=== PATIENT | female | born 1990 | race Caucasian/White ===

== ENCOUNTER 2019-01-24 23:23 | Emergency (ER) | payer MEDICAID ==
[~2019-01-24] VITALS: Ht 157 cm; Wt 143.1 kg
[2019-01-25] MEDS ORDERED: SITA100T12 PO (00:33)
[2019-01-25] MEDS ORDERED: LISI10TA2 PO (00:33)
[2019-01-25] MEDS ORDERED: METF500T8 PO (00:33)
[2019-01-25] MEDS ORDERED: BUPR150T7 PO (00:33)
[2019-01-25] MEDS ORDERED: ATOR20TA66 PO (00:33)
--- NOTE | 2019-01-25 00:39 | ED GU-Female ---
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 Patient states tonight while she and her were having sex some tissue came out of her vagina. Patient states she currently is on her period. She has been seen by her PCP for the abdominal pain and has had labs and a CT scan. She states the CT scan and labs were negative. Nursing Sepsis Screen: No Definite Risk Source: patient History of Present Illness Date Seen by Provider: Jan 24, 2019 Time Seen by Provider: 23:45 Initial Comments PT ARRIVES VIA POV WITH MALE S.O. AND HER MOTHER C/O DIFFUSE LOWER ABDOMINAL PAIN FOR OVER A MONTH STATES NOTHING WORSENS OR IMPROVES PAIN STATES SHE SAW DR. RING IN [place] 3 WEEKS AGO, AND HAD A CT SCAN DONE. PT STATES THAT IT WAS NORMAL. 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 HAS ONLY USED 4 PADS TODAY HAD INTERCOURSE TONIGHT AND AFTERWARDS, "A BIG PIECE OF TISSUE CAME OUT" SO CAME HERE "TO SEE WHAT IT WAS" --BRINGS WITH HER AN IRREGULAR/DISORGANIZED PIECE OF BLOODY TISSUE APPROXIMATELY 2 X 6 CM STATES LOWER ABDOMINAL PAIN GOT WORSE AFTER THAT, BUT IS BETTER NOW. HAS NOT TAKEN ANYTHING FOR PAIN NO FEVER NO URINARY SYMPTOMS ONLY HAD SMALL AMOUNT OF CLEAR TO WHITE MUCOUS DISCHARGE PRIOR TO STARTING HER PERIOD NO NAUSEA/VOMITING/DIARRHEA. HAD SOME MILD CONSTIPATION, AND HAD A NORMAL BM TODAY. PT IS AB 1--NO D&C REQUIRED WITH MISCARRIAGE--WAS HER FIRST . SECOND WAS FULL TERM / IN 2010 LMP WAS THE END OF NOVEMBER. NO PERIOD IN . NOT ON CONTROL PCP: DR. RING, [place], [place] Allergies and Home Medications Allergies Coded Allergies: No Known Drug Allergies (Unverified , 01/25/19) Home Medications Atorvastatin Calcium 20 Mg Tablet, 20 MG PO DAILY, (Reported) Bupropion HCl 150 Mg Tab.er.24h, 150 MG PO DAILY, (Reported) Lisinopril 10 Mg Tablet, 10 MG PO DAILY, (Reported) Metformin HCl 500 Mg Tab.er.24h, 500 MG PO DAILY, (Reported) Nitrofurantoin Monohyd/M-Cryst 100 Mg Capsule, 100 MG PO BID Prescribed by: ALEXA JULIEN on 01/25/19 0142 Sitagliptin Phosphate 100 Mg Tablet, 100 MG PO DAILY, (Reported) Review of Systems Review of Systems Constitutional: no symptoms reported Respiratory: no symptoms reported Cardiovascular: no symptoms reported Gastrointestinal: see HPI Genitourinary: see HPI : No LMP: Jan 19, 2019 Musculoskeletal: no symptoms reported Skin: no symptoms reported Psychiatric/Neurological: No Symptoms Reported Endocrine: No Symptoms Reported Hematologic/Lymphatic: No Symptoms Reported Past Xheprvq-Gttdnl-Xudldt Hx Patient Social History Alcohol Use: Denies Use Recreational Drug Use: No Smoking Status: Current Everyday Smoker (1 PPD) Type Used: Cigarettes (1 PPD) 2nd Hand Smoke Exposure: Yes Recent Foreign Travel: No Contact w/Someone Who Travel: No Recent Infectious Disease Expo: No Recent Hopitalizations: No Physical Abuse: No Sexual Abuse: No Mistreated: No Fear: No Immunizations Up To Date PED Vaccines UTD: Yes Seasonal Allergies Seasonal Allergies: No Past Medical History Surgeries: Yes Section, Tonsillectomy Respiratory: No Cardiac: Yes High Cholesterol, Hypertension Neurological: No : No Last Menstrual Period: Jan 19, 2019 Hx : 2 Hx Para: 1 Hx Total # of Abortions (Sp): 1 Reproductive Disorders: No Genitourinary: No Gastrointestinal: No Musculoskeletal: No Endocrine: Yes (MORBID OBESITY) Diabetes, Non-Insulin dep HEENT: No Cancer: No Psychosocial: No Integumentary: No Blood Disorders: No Physical Exam Vital Signs Vital Signs - First Documented 01/24/19 23:37 Temp 36.7 Pulse 116 Resp 20 B/P (MAP) 143/97 (112) Pulse Ox 96 O2 Delivery Room Air Capillary Refill : Less Than 3 Seconds Height, Weight, BMI Height: '" Weight: lbs. oz. kg; 58.00 BMI Method: General Appearance: no apparent distress, obese Cardiovascular: regular rate, rhythm, no murmur Respiratory: normal breath sounds, no respiratory distress, no accessory muscle use Gastrointestinal: normal bowel sounds, soft, no organomegaly, no pulsatile mas s, tenderness (MILD SUPRAPUBIC TENDERNESS) Pelvic: No tender w/ cervical motion; vaginal bleeding ([place]), other (CERVIX CLOSED, NO TISSUE IN VAGINAL CANAL. FEW LESIONS THAT HAVE APPEARANCE OF NABOTHIAN CYSTS ON CERVIX. NO CMT. 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, no motor/sensory deficits, alert, normal mood/affect, oriented x 3 Skin: normal color, warm/dry Progress/Results/Core Measures Suspected Sepsis Recent Fever Within 48 Hours: No Infection Criteria Present: None New/Unexplained Altered Menta: No Sepsis Screen: No Definite Risk SIRS Temperature: Pulse: 116 Respiratory Rate: 20 Laboratory Tests 01/25/19 00:43: White Blood Count 15.4H Blood Pressure 143 /97 Mean: 112 Laboratory Tests 01/25/19 00:43: Creatinine 0.71, Platelet Count 300, Total Bilirubin 0.4 Results/Orders Lab Results Laboratory Tests Test 01/25/19 00:43 01/25/19 00:45 Range/Units White Blood Count 15.4 H 4.3-11.0 10^3/uL Red Blood Count 5.74 4.35-5.85 10^6/uL Hemoglobin 15.5 11.5-16.0 G/DL Hematocrit 47 35-52 % Mean Corpuscular Volume 82 80-99 FL Mean Corpuscular Hemoglobin 27 25-34 PG Mean Corpuscular Hemoglobin Concent 33 32-36 G/DL Red Cell Distribution Width 15.0 H 10.0-14.5 % Platelet Count 300 130-400 10^3/uL Mean Platelet Volume 10.1 7.4-10.4 FL Neutrophils (%) (Auto) 66 42-75 % Lymphocytes (%) (Auto) 24 12-44 % Monocytes (%) (Auto) 6 0-12 % Eosinophils (%) (Auto) 4 0-10 % Basophils (%) (Auto) 0 0-10 % Neutrophils # (Auto) 10.2 H 1.8-7.8 X 10^3 Lymphocytes # (Auto) 3.7 1.0-4.0 X 10^3 Monocytes # (Auto) 0.9 0.0-1.0 X 10^3 Eosinophils # (Auto) 0.6 H 0.0-0.3 10^3/uL Basophils # (Auto) 0.0 0.0-0.1 10^3/uL Sodium Level 138 135-145 MMOL/L Potassium Level 3.9 3.6-5.0 MMOL/L Chloride Level 102 98-107 MMOL/L Carbon Dioxide Level 24 21-32 MMOL/L Anion Gap 12 5-14 MMOL/L Blood Urea Nitrogen 11 7-18 MG/DL Creatinine 0.71 0.60-1.30 MG/DL Estimat Glomerular Filtration Rate > 60 BUN/Creatinine Ratio 15 Glucose Level 159 H 70-105 MG/DL Calcium Level 9.7 8.5-10.1 MG/DL Corrected Calcium 9.4 8.5-10.1 MG/DL Total Bilirubin 0.4 0.1-1.0 MG/DL Aspartate Amino Transf (AST/SGOT) 29 5-34 U/L Alanine Aminotransferase (ALT/SGPT) 50 0-55 U/L Alkaline Phosphatase 105 40-136 U/L Total Protein 7.8 6.4-8.2 GM/DL Albumin 4.4 3.2-4.5 GM/DL Human Chorionic Gonadotropin, Quant 32 H <5 MIU/ML Urine Color YELLOW Urine Clarity CLEAR Urine pH 5 5-9 Urine Specific [place] 1.030 H 1.016-1.022 Urine Protein 2+ H NEGATIVE Urine Glucose (UA) 3+ H NEGATIVE Urine Ketones 1+ H NEGATIVE Urine Nitrite NEGATIVE NEGATIVE Urine Bilirubin 1+ H NEGATIVE Urine Urobilinogen 1 NORMAL MG/DL Urine Leukocyte Esterase 1+ H NEGATIVE Urine RBC (Auto) 1+ H NEGATIVE Urine RBC NONE /HPF Urine WBC 2-5 /HPF Urine Squamous Epithelial Cells 2-5 /HPF Urine Crystals NONE /LPF Urine Bacteria MODERATE H /HPF Urine Casts PRESENT /LPF Urine Hyaline Casts 0-2 H /LPF Urine Mucus LARGE H /LPF Urine Culture Indicated NO My Orders Orders - ALEXA JULIEN DO Cbc With Automated Diff (01/25/19 00:30) Comprehensive Metabolic Panel (01/25/19 00:30) Hcg,Quantitative (01/25/19 00:30) Ua Culture If Indicated (01/25/19 00:30) Abo Rh Type (01/25/19 00:30) Manual Differential (01/25/19 00:43) Nitrofurantoin Capsule,Macro (Macrobid C (01/25/19 01:45) Vital Signs/I&O 01/24/19 23:37 Temp 36.7 Pulse 116 Resp 20 B/P (MAP) 143/97 (112) Pulse Ox 96 O2 Delivery Room Air Capillary Refill : Less Than 3 Seconds Blood Pressure Mean: 112 Progress Note : Progress Note NO COMPLAINTS OF PAIN, OR ANY ACTIVE BLEEDING DURING ENTIRE ER STAY. DID NOT USE ANY PADS DURING ER STAY NO ULTRASOUND AVAILABLE HERE ALL WEEKEND. ADVISED PT TO FOLLOW UP WITH HER PCP ON SATURDAY FOR FURTHER EVALUATION Departure Impression Primary Impression: Urinary tract infection Additional Impression: SUSPECTED MISCARRIAGE Disposition: HOME, SELF-CARE (ERASED) Condition: Stable Departure-Patient Inst. Patient Instructions: Threatened Miscarriage (DC), Urinary Tract Infection, Adult (DC) Add. Discharge Instructions: NOTHING IN VAGINA--NO TAMPONS, DOUCHING OR INTERCOURSE LOTS OF CLEAR LIQUIDS TYLENOL NEEDED FOR PAIN KEEP AN ACCURATE PAD COUNT, RETURN IF SOAKING MORE THAN 1 MAXI PAD AN HOUR FOLLOW UP WITH YOUR DR ON SATURDAY FOR FURTHER CARE All discharge instructions reviewed with patient and/or family. Voiced understanding. Scripts Nitrofurantoin Monohyd/M-Cryst (Macrobid 100 mg Capsule) 100 Mg Capsule 100 MG PO BID, #20 CAP Prov: ALEXA JULIEN DO 01/25/19 ALEXA JULIEN DO Jan 25, 2019 00:39
--- NOTE | 2019-01-25 00:43 | NUR ---
Collected vaginal tissue brought from home and sent to lab with surgical pathology slip
[2019-01-25 00:50] LABS: BASOPHILS % (AUTO) 0 % (0-10); EOSINOPHILS # (AUTO) 0.6 10^3/uL (0.0-0.3); EOSINOPHILS % (AUTO) 4 % (0-10); HEMATOCRIT 47 % (35-52); HEMOGLOBIN 15.5 G/DL (11.5-16.0); LYMPHOCYTES # (AUTO) 3.7 X 10^3 (1.0-4.0); LYMPHOCYTES % (AUTO) 24 % (12-44); MEAN CORPUSCULAR HEMOGLOBIN 27 PG (25-34); MEAN CORPUSCULAR HGB CONC 33 G/DL (32-36); MEAN CORPUSCULAR VOLUME 82 FL (80-99); MEAN PLATELET VOLUME 10.1 FL (7.4-10.4); MONOCYTES # (AUTO) 0.9 X 10^3 (0.0-1.0); MONOCYTES % (AUTO) 6 % (0-12); NEUTROPHILS # (AUTO) 10.2 X 10^3 (1.8-7.8); NEUTROPHILS % (AUTO) 66 % (42-75); PLATELET COUNT 300 10^3/uL (130-400); WHITE BLOOD COUNT 15.4 10^3/uL (4.3-11.0)
[2019-01-25 00:51] LABS: BILIRUBIN,URINE 1+ (NEGATIVE); CLARITY,URINE CLEAR; COLOR,URINE YELLOW; GLUCOSE, URINE (UA) 3+ (NEGATIVE); KETONES,URINE 1+ (NEGATIVE); LEUKOCYTE ESTERASE ,URINE 1+ (NEGATIVE); NITRITE,URINE NEGATIVE (NEGATIVE); PH,URINE 5 (5-9); PROTEIN,URINE 2+ (NEGATIVE); UROBILINOGEN,URINE 1 MG/DL (NORMAL)
[2019-01-25 01:22] LABS: ALANINE AMINOTRANSFERASE 50 U/L (0-55); ALBUMIN 4.4 GM/DL (3.2-4.5); ALKALINE PHOSPHATASE 105 U/L (40-136); BILIRUBIN,TOTAL 0.4 MG/DL (0.1-1.0); BUN/CREATININE RATIO 15; CALCIUM 9.7 MG/DL (8.5-10.1); CARBON DIOXIDE 24 MMOL/L (21-32); CHLORIDE 102 MMOL/L (98-107); CREATININE SERUM 0.71 MG/DL (0.60-1.30); GFR ESTIMATED > 60; GLUCOSE 159 MG/DL (70-105); POTASSIUM 3.9 MMOL/L (3.6-5.0); SODIUM 138 MMOL/L (135-145); TOTAL PROTEIN 7.8 GM/DL (6.4-8.2)
[2019-01-25 01:23] LABS: BACTERIA,URINE MODERATE /HPF; HYALINE CASTS, URINE 0-2 /LPF
[2019-01-25] MEDS ORDERED: NITR-65 PO (01:42)
[2019-01-25] MEDS ORDERED: NITROFURANTOIN 100 MG (MACROBID) CAPSULE PO ONE (01:45)
[2019-01-25 01:50] VITALS: BP 109/73
[2019-01-25 05:28] LABS: EOSINOPHILS % (MANUAL) 5 %; LYMPHOCYTES % (MANUAL) 28 %; MONOCYTES % (MANUAL) 4 %; NEUTROPHILS % (MANUAL) 63 %
== END 2019-01-25 02:00 | disposition home or self-care (01) ==
LOC: ER 23:25 → EDBD 23:25 → ER 01-25 02:00
DX: N39.0 Urinary tract infection, site not specified (principal); I10 Essential (primary) hypertension; E78.00 Pure hypercholesterolemia, unspecified; E11.9 Type 2 diabetes mellitus without complications; E66.01 Morbid (severe) obesity due to excess calories; F17.210 Nicotine dependence, cigarettes, uncomplicated; Z68.43 Body mass index [BMI] 50.0-59.9, adult; Z79.84 Long term (current) use of oral hypoglycemic drugs; Z90.89 Acquired absence of other organs
CPT/HCPCS: 36415; 80053; 81000; 84702; 85007; 85027; 86900; 86901

== ENCOUNTER → 2019-03-10 | Outpatient (CLI) | payer MEDICAID ==
[~2019-03-10] MED LIST: ATOR20TA66 PO; BUPR150T7 PO; LISI10TA2 PO; METF500T8 PO; NITR-65 PO; SITA100T12 PO
--- NOTE | 2019-03-10 13:50 | Diagnostic Imaging Report ---
PROCEDURE: US Non-ob pelvis comp/trans. TECHNIQUE: Multiple realtime grayscale images were obtained of the pelvis in various projections endovaginally. Transabdominal imaging was also performed. INDICATION: Abnormal uterine bleeding. FINDINGS: The previous pelvic ultrasound exam performed on 12/21/2011 noted an IUD within the endometrium. In the interval since the prior study the IUD has been removed. The uterus itself is nongravid and not enlarged measuring 8.7 x 6.4 x 5.3 cm. The endometrial lining is slightly thickened measuring 9 mm (normal 5 mm or less). This finding is nonspecific. Correlation with the patient's menstrual cycle would be recommended. The right ovary was identified and was generally unremarkable. As on the prior exam, the left ovary could not be visualized. There is no pelvic mass or free fluid collection noted. IMPRESSION: 1. There is no evidence for an acute pelvic abnormality although the left ovary is not visualized. 2. The IUD within the uterus seen previously has been removed. Dictated by: Dictated on workstation # [id number]
== END ==
LOC: RAD 10:19
PROVIDERS: ATTEND Obstetrics & Gynecology
DX: N93.8 Other specified abnormal uterine and vaginal bleeding (principal); Z68.43 Body mass index [BMI] 50.0-59.9, adult; Z97.5 Presence of (intrauterine) contraceptive device
CPT/HCPCS: 76830; 76856

== ENCOUNTER 2019-05-04 23:56 | Emergency (ER) | payer SELFPAY ==
[~2019-05-04] VITALS: Ht 157.4 cm; Wt 138.3 kg
[~2019-05-04 23:56] MED LIST changes: +METF500T19 PO; -METF500T8 PO
[2019-05-05] MEDS ORDERED: ASPIRIN 81 MG CHEW (CHILDREN'S ASA) ONE (00:10)
[2019-05-05] MEDS ORDERED: NS IV 1000 ML 1,000 ML IV ONE (00:19)
[2019-05-05 00:25] LABS: BASOPHILS % (AUTO) 0 % (0-10); EOSINOPHILS # (AUTO) 0.4 10^3/uL (0.0-0.3); EOSINOPHILS % (AUTO) 3 % (0-10); HEMATOCRIT 49 % (35-52); HEMOGLOBIN 15.9 G/DL (11.5-16.0); LYMPHOCYTES # (AUTO) 3.8 X 10^3 (1.0-4.0); LYMPHOCYTES % (AUTO) 30 % (12-44); MEAN CORPUSCULAR HEMOGLOBIN 26 PG (25-34); MEAN CORPUSCULAR HGB CONC 33 G/DL (32-36); MEAN CORPUSCULAR VOLUME 81 FL (80-99); MEAN PLATELET VOLUME 10.1 FL (7.4-10.4); MONOCYTES % (AUTO) 8 % (0-12); NEUTROPHILS # (AUTO) 7.6 X 10^3 (1.8-7.8); NEUTROPHILS % (AUTO) 59 % (42-75); PLATELET COUNT 330 10^3/uL (130-400); RED CELL DISTRIBUTION WIDTH 15.3 % (10.0-14.5); WHITE BLOOD COUNT 12.8 10^3/uL (4.3-11.0)
--- NOTE | 2019-05-05 00:25 | ED Chest Pain ---
General Chief Complaint: Chest Pain Stated Complaint: CP Source: patient Exam Limitations: no limitations History of Present Illness Date Seen by Provider: May 05, 2019 Time Seen by Provider: 00:01 Initial Comments Patient presents to the ER by private conveyance with her significant other and chief complaint about half an hour prior to arrival she began to experience some left upper chest pain radiating into her shoulder and neck. She rates her pain as a 7 out of 10, intermittent, achy. No sweats or nausea. She has some mild, intermittent shortness of breath and occasional cough. She smokes about a half pack of cigarettes per day. She denies a history of coronary disease but she has had chest pain worked up in [place] by press machine feeder to told her she had some intermittent dropping out of the. She had any stress test 6-8 months ago that was negative. She was released from the press machine feeder care. She recently moved here and now follows with Dr. Hummel in [place], [place]. She denies hypertension, hyperlipidemia but she does have diabetes and obesity. She denies PCO S. She supposed to be on metformin but she's been off it for several weeks because she lost her medical card. She says she has a history of GERD but does not take anything for it. She has a history of anxiety but also is not on any medicines for this. She has not tried anything tonight since the pain started. Allergies and Home Medications Allergies Coded Allergies: No Known Drug Allergies (Unverified , 05/05/19) Home Medications Atorvastatin Calcium 20 Mg Tablet, 20 MG PO DAILY, (Reported) Bupropion HCl 150 Mg Tab.er.24h, 150 MG PO DAILY, (Reported) Lisinopril 10 Mg Tablet, 10 MG PO DAILY, (Reported) Metformin HCl 500 Mg Tab.er.24h, 500 MG PO DAILY, (Reported) Nitrofurantoin Monohyd/M-Cryst 100 Mg Capsule, 100 MG PO BID Prescribed by: ALEXA JULIEN on 01/25/19 0142 Sitagliptin Phosphate 100 Mg Tablet, 100 MG PO DAILY, (Reported) Patient Home Medication List Home Medication List Reviewed: Yes Review of Systems Review of Systems Constitutional: No chills, No diaphoresis EENTM: No Blurred Vision, No Double Vision Respiratory: See HPI, Cough, Shortness of Air Cardiovascular: See HPI, Chest Pain; Denies Edema, Denies Irregular Heart Rate, Denies Palpitations, Denies Syncope Gastrointestinal: Denies Constipated, Denies Diarrhea Genitourinary: Denies Burning, Denies Discharge, Denies Drainage Musculoskeletal: No back pain, No joint pain Skin: No pruritus, No rash All Other Systems Reviewed Negative Unless Noted: Yes Past Zzrsvzp-Uhtcbo-Hhbqoa Hx Patient Social History Alcohol Use: Denies Use Recreational Drug Use: No Smoking Status: Current Everyday Smoker Type Used: Cigarettes (0.5 ppd) 2nd Hand Smoke Exposure: Yes Recent Foreign Travel: No Contact w/Someone Who Travel: No Recent Hopitalizations: No Immunizations Up To Date PED Vaccines UTD: Yes Seasonal Allergies Seasonal Allergies: No Past Medical History Surgeries: Yes Section, Tonsillectomy Respiratory: No Cardiac: Yes High Cholesterol, Hypertension Neurological: No Reproductive Disorders: No Genitourinary: No Gastrointestinal: No Musculoskeletal: No Endocrine: Yes (MORBID OBESITYL HAS NEVER CHECKED HER BLOOD SUGAR) Diabetes, Non-Insulin dep HEENT: No Cancer: No Psychosocial: No Integumentary: No Blood Disorders: No Physical Exam Vital Signs Vital Signs - First Documented 05/05/19 00:03 Temp 37.4 Pulse 123 Resp 20 B/P (MAP) 117/89 (98) Pulse Ox 94 O2 Delivery Room Air Capillary Refill : Height, Weight, BMI Height: '" Weight: lbs. oz. kg; 58.00 BMI Method: General Appearance: No Apparent Distress, WD/WN HEENT: PERRL/EOMI, Pharynx Normal, Moist Mucous Membranes Neck: Full Range of Motion, Normal Inspection Respiratory: No Chest Non Tender (left upper chest pain is reproducible to direct palpation.); Lungs Clear, Normal Breath Sounds, No Accessory Muscle Use, No Respiratory Distress Cardiovascular: Regular Rate, Rhythm, No Edema Gastrointestinal: Normal Bowel Sounds, No Organomegaly Extremity: Normal Capillary Refill, Normal Inspection, No Pedal Edema Neurologic/Psychiatric: Alert, Oriented x3, No Motor/Sensory Deficits Skin: Normal Color, Warm/Dry Progress/Results/Core Measures Results/Orders Lab Results Laboratory Tests Test 05/05/19 00:10 05/05/19 00:25 05/05/19 02:30 Range/Units White Blood Count 12.8 H 4.3-11.0 10^3/uL Red Blood Count 6.07 H 4.35-5.85 10^6/uL Hemoglobin 15.9 11.5-16.0 G/DL Hematocrit 49 35-52 % Mean Corpuscular Volume 81 80-99 FL Mean Corpuscular Hemoglobin 26 25-34 PG Mean Corpuscular Hemoglobin Concent 33 32-36 G/DL Red Cell Distribution Width 15.3 H 10.0-14.5 % Platelet Count 330 130-400 10^3/uL Mean Platelet Volume 10.1 7.4-10.4 FL Neutrophils (%) (Auto) 59 42-75 % Lymphocytes (%) (Auto) 30 12-44 % Monocytes (%) (Auto) 8 0-12 % Eosinophils (%) (Auto) 3 0-10 % Basophils (%) (Auto) 0 0-10 % Neutrophils # (Auto) 7.6 1.8-7.8 X 10^3 Lymphocytes # (Auto) 3.8 1.0-4.0 X 10^3 Monocytes # (Auto) 1.0 0.0-1.0 X 10^3 Eosinophils # (Auto) 0.4 H 0.0-0.3 10^3/uL Basophils # (Auto) 0.0 0.0-0.1 10^3/uL Prothrombin Time 14.0 12.2-14.7 SEC INR Comment 1.0 0.8-1.4 Activated Partial Thromboplast Time 28 24-35 SEC D-Dimer 0.26 0.00-0.49 UG/ML Sodium Level 136 135-145 MMOL/L Potassium Level 4.1 3.6-5.0 MMOL/L Chloride Level 99 98-107 MMOL/L Carbon Dioxide Level 24 21-32 MMOL/L Anion Gap 13 5-14 MMOL/L Blood Urea Nitrogen 11 7-18 MG/DL Creatinine 0.86 0.60-1.30 MG/DL Estimat Glomerular Filtration Rate > 60 BUN/Creatinine Ratio 13 Glucose Level 372 H 70-105 MG/DL Calcium Level 9.6 8.5-10.1 MG/DL Corrected Calcium 9.4 8.5-10.1 MG/DL Magnesium Level 1.9 1.6-2.4 MG/DL Total Bilirubin 0.3 0.1-1.0 MG/DL Aspartate Amino Transf (AST/SGOT) 24 5-34 U/L Alanine Aminotransferase (ALT/SGPT) 55 0-55 U/L Alkaline Phosphatase 125 40-136 U/L Myoglobin 15.6 10.0-92.0 NG/ML Troponin I < 0.028 < 0.028 <0.028 NG/ML Total Protein 7.8 6.4-8.2 GM/DL Albumin 4.2 3.2-4.5 GM/DL Urine Color YELLOW Urine Clarity CLEAR Urine pH 5.0 5-9 Urine Specific [place] 1.015 L 1.016-1.022 Urine Protein NEGATIVE NEGATIVE Urine Glucose (UA) 3+ H NEGATIVE Urine Ketones NEGATIVE NEGATIVE Urine Nitrite NEGATIVE NEGATIVE Urine Bilirubin NEGATIVE NEGATIVE Urine Urobilinogen 0.2 < = 1.0 MG/DL Urine Leukocyte Esterase NEGATIVE NEGATIVE Urine RBC (Auto) 1+ H NEGATIVE Urine RBC RARE /HPF Urine WBC NONE /HPF Urine Squamous Epithelial Cells 2-5 /HPF Urine Crystals NONE /LPF Urine Bacteria TRACE /HPF Urine Casts NONE /LPF Urine Mucus NEGATIVE /LPF Urine Culture Indicated NO Urine Opiates Screen NEGATIVE NEGATIVE Urine Oxycodone Screen NEGATIVE NEGATIVE Urine Methadone Screen NEGATIVE NEGATIVE Urine Propoxyphene Screen NEGATIVE NEGATIVE Urine Barbiturates Screen NEGATIVE NEGATIVE Ur Tricyclic Antidepressants Screen NEGATIVE NEGATIVE Urine Phencyclidine Screen NEGATIVE NEGATIVE Urine Amphetamines Screen NEGATIVE NEGATIVE Urine Methamphetamines Screen NEGATIVE NEGATIVE Urine Benzodiazepines Screen NEGATIVE NEGATIVE Urine Cocaine Screen NEGATIVE NEGATIVE Urine Cannabinoids Screen NEGATIVE NEGATIVE My Orders Orders - YADY NELSON Aspirin Chewable Tablet (Baby Aspirin Ch (05/05/19 00:10) Aspirin Chewable Tablet (Baby Aspirin Ch (05/05/19 00:30) Cbc With Automated Diff (05/05/19 00:17) Magnesium (05/05/19 00:17) Chest 1 View, Ap/Pa Only (05/05/19 00:17) Ekg Tracing (05/05/19 00:17) Comprehensive Metabolic Panel (05/05/19 00:17) Myoglobin Serum (05/05/19 00:17) Protime With Inr (05/05/19 00:17) Partial Thromboplastin Time (05/05/19 00:17) O2 (05/05/19 00:17) Monitor-Rhythm Ecg Trace Only (05/05/19 00:17) Lipid Panel (05/06/19 06:00) Ed Iv/Invasive Line Start (05/05/19 00:17) Nitroglycerin 0.4 Mg Btl 25's (Nitrostat (05/05/19 00:30) Aspirin Chewable Tablet (Baby Aspirin Ch (05/05/19 00:30) Ua Culture If Indicated (05/05/19 00:17) Urine Bedside (05/05/19 00:17) Drug Screen Stat (Urine) (05/05/19 00:17) Ed Iv/Invasive Line Start (05/05/19 00:19) Ns Iv 1000 Ml (Sodium Chloride 0.9%) (05/05/19 00:19) Fibrin Degradation Products (05/05/19 00:10) Troponin I (05/05/19 00:10) Lidocaine 2% Viscous 15 Ml (Xylocaine Vi (05/05/19 00:45) Famotidine Tablet (Pepcid Tablet) (05/05/19 00:43) Antacid Suspension (Mylanta Suspension (05/05/19 00:45) Insulin (Regular) Human (Humulin R (Per (05/05/19 01:00) Troponin I (05/05/19 02:30) Accucheck Stat ONCE (05/05/19 02:48) Medications Given in ED Current Medications Medications Dose Ordered Sig/Darcy Route Start Time Stop Time Status Last Admin Dose Admin Al Hydrox/Mg Hydrox/Simethicone 30 ml ONCE ONCE PO 05/05/19 00:45 05/05/19 00:46 DC 05/05/19 00:49 30 ML Aspirin 324 mg ONCE ONCE PO 05/05/19 00:30 05/05/19 00:31 DC 05/05/19 00:18 324 MG Insulin Human Regular 7 unit ONCE ONCE SC 05/05/19 01:00 05/05/19 01:01 DC 05/05/19 01:01 7 UNIT Lidocaine HCl 15 ml ONCE ONCE PO 05/05/19 00:45 05/05/19 00:46 DC 05/05/19 00:48 15 ML Sodium Chloride 1,000 ml @ 0 mls/hr Q0M ONCE IV 05/05/19 00:19 05/05/19 00:20 DC 05/05/19 00:42 1,000 MLS/HR Vital Signs/I&O 05/05/19 05/05/19 00:03 00:03 Temp 37.4 Pulse 123 Resp 20 B/P (MAP) 117/89 (98) Pulse Ox 94 O2 Delivery Room Air Progress Progress Note #1: Time: 00:24 Progress Note Patient has some coronary risk factors with obesity and diabetes. Suspect PCO S. We'll do a 3 hour rule out a 0230. Plan to start with some nitroglycerin and aspirin. We'll then try a GI cocktail finally Toradol for what is most likely costochondritis. We'll give him a liter of fluids for her sinus tachycardia. Urinalysis and at bedside. Drug screen. She seems to live a rather sedentary lifestyle but has no recent surgeries or anything to make a pulmonary embolism more likely. Because of this intermediate suspicion we will get a d- dimer. Progress Note #2: Time: 00:43 Progress Note By the time the nurses ready to give nitroglycerin the patient rates her pain as a 2 out of 10 so we are going to skip to a GI cocktail. Initial ECG Impression Date: May 05, 2019 Initial ECG Impression Time: 00:05 Initial ECG Rate: 116 Initial ECG Rhythm: S.Tach Initial ECG Intervals: Normal Initial ECG Impression: Normal Comment Sinus tachycardia with no clinically relevant ST elevation or depression. Diagnostic Imaging Diagonstic Imaging: Xray Plain Films/CT/US/NM/MRI: chest (1v) Comments No acute cardiopulmonary processes noted on one view chest x-ray Reviewed: Reviewed by Me Departure Impression Primary Impression: Chest pain Qualified Codes: R07.9 - Chest pain, unspecified Disposition: 01 HOME, SELF-CARE Condition: Stable Departure-Patient Inst. Decision time for Depature: 03:02 Referrals: NO,LOCAL PHYSICIAN (PCP/Family) Primary Care Physician Patient Instructions: Chest Pain That Is Not Caused by the Heart (DC) Add. Discharge Instructions: Plan 1-2 weeks with your primary provider. Your pain returns you may try ibuprofen 800 mg, Tylenol 1000 mg and/or antacids. If this does not help then you should follow-up sooner. All discharge instructions reviewed with patient and/or family. Voiced understanding. YADY NELSON May 05, 2019 00:25
[2019-05-05] MEDS ORDERED: ASPIRIN 81 MG CHEW (CHILDREN'S ASA) PO ONE ×2 (00:30)
[2019-05-05] MEDS ORDERED: NITROGLYCERIN 0.4 MG SL TABS BTL 25'S SL PRN (00:30)
[2019-05-05 00:34] LABS: BILIRUBIN,URINE NEGATIVE (NEGATIVE); CLARITY,URINE CLEAR; COLOR,URINE YELLOW; GLUCOSE, URINE (UA) 3+ (NEGATIVE); KETONES,URINE NEGATIVE (NEGATIVE); LEUKOCYTE ESTERASE ,URINE NEGATIVE (NEGATIVE); NITRITE,URINE NEGATIVE (NEGATIVE); PROTEIN,URINE NEGATIVE (NEGATIVE)
[2019-05-05 00:41] LABS: BACTERIA,URINE TRACE /HPF; RBC,URINE RARE /HPF
[2019-05-05] MEDS ORDERED: FAMOTIDINE 20 MG (PEPCID) TABLET PO STA (00:43)
[2019-05-05 00:44] LABS: AMPHETAMINE SCREEN, URINE NEGATIVE (NEGATIVE); BARBITURATE SCREEN URINE NEGATIVE (NEGATIVE); BENZODIAZEPINES SCREEN URINE NEGATIVE (NEGATIVE); CANNABINOID SCREEN, URINE NEGATIVE (NEGATIVE); COCAINE SCREEN URINE NEGATIVE (NEGATIVE); METHADONE STAT NEGATIVE (NEGATIVE); METHAMPHETAMINE SCREEN URINE S NEGATIVE (NEGATIVE); OPIATE SCREEN URINE NEGATIVE (NEGATIVE); OXYCODONE STAT NEGATIVE (NEGATIVE); PROPOXYPHENE STAT NEGATIVE (NEGATIVE); TRICYCLIC ANTIDEPRESSANTS SCRE NEGATIVE (NEGATIVE)
[2019-05-05 00:45] LABS: ALANINE AMINOTRANSFERASE 55 U/L (0-55); ALBUMIN 4.2 GM/DL (3.2-4.5); ALKALINE PHOSPHATASE 125 U/L (40-136); BILIRUBIN,TOTAL 0.3 MG/DL (0.1-1.0); BUN/CREATININE RATIO 13; CALCIUM 9.6 MG/DL (8.5-10.1); CARBON DIOXIDE 24 MMOL/L (21-32); CHLORIDE 99 MMOL/L (98-107); CREATININE SERUM 0.86 MG/DL (0.60-1.30); GFR ESTIMATED > 60; GLUCOSE 372 MG/DL (70-105); MAGNESIUM 1.9 MG/DL (1.6-2.4); POTASSIUM 4.1 MMOL/L (3.6-5.0); SODIUM 136 MMOL/L (135-145); TOTAL PROTEIN 7.8 GM/DL (6.4-8.2)
[2019-05-05] MEDS ORDERED: ANTACID SUSP 30 ML UDC (MYLANTA) PO ONE (00:45)
[2019-05-05] MEDS ORDERED: LIDOCAINE 2% VISCOUS 15 ML UDC PO ONE (00:45)
[2019-05-05 00:52] LABS: FIBRIN DEGRADATION PRODUCTS 0.26 UG/ML (0.00-0.49)
[2019-05-05] MEDS ORDERED: inSUlin (REGULAR) HUMAN 1 UNIT/0.01 ML (CHARGE PER UNIT) SC ONE (01:00)
[2019-05-05 03:12] VITALS: BP 139/99
--- NOTE | 2019-05-05 07:06 | Diagnostic Imaging Report ---
Reason for examination: Chest pain. Frontal view of the chest was obtained and compared to 07/21/2011. The heart size is within normal limits. No mediastinal widening. No effusions, infiltrates or pneumothorax. IMPRESSION: 1. No acute findings in the chest. Dictated by: Dictated on workstation # [id number]
== END 2019-05-05 03:12 | disposition home or self-care (01) ==
LOC: EDUNIT# 23:56 → ER 23:58
DX: R07.9 Chest pain, unspecified (principal); K21.9 Gastro-esophageal reflux disease without esophagitis; F41.9 Anxiety disorder, unspecified; I10 Essential (primary) hypertension; E11.9 Type 2 diabetes mellitus without complications; E78.00 Pure hypercholesterolemia, unspecified; E66.01 Morbid (severe) obesity due to excess calories; F17.210 Nicotine dependence, cigarettes, uncomplicated; Z79.84 Long term (current) use of oral hypoglycemic drugs; Z90.89 Acquired absence of other organs; Z68.43 Body mass index [BMI] 50.0-59.9, adult
CPT/HCPCS: 36415; 71045; 80053; 80306; 81000; 82962; 83735; 83874; 84484; 84703; 85025; 85379; 85610; 85730; 93005; 93041; 96372

== ENCOUNTER → 2019-11-17 | Outpatient (CLI) | payer MEDICAID ==
[~2019-11-17] MED LIST changes: +METF-865 PO; -METF500T19 PO
--- NOTE | 2019-11-17 15:45 | Diagnostic Imaging Report ---
PROCEDURE: US right lower extremity venous. TECHNIQUE: Multiple real-time grayscale images were obtained over the right lower extremity in various projections. Additional spectral analysis and color Doppler duplex images were also obtained. INDICATION: Right leg pain. FINDINGS: There is no evidence of right lower extremity DVT. The right lower extremity deep venous system demonstrates normal compressibility with normal response to augmentation and Valsalva. No fluid collection or mass is detected. IMPRESSION: No evidence of right lower extremity DVT. Dictated by: Dictated on workstation # [id number]
== END ==
LOC: RAD 13:54
PROVIDERS: ATTEND Student in an Organized Health Care Education/Training Program
DX: M79.604 Pain in right leg (principal); R09.89 Other specified symptoms and signs involving the circulatory and respiratory systems

== ENCOUNTER 2020-08-30 19:55 | Emergency (ER) | payer MEDICAID ==
[~2020-08-30 19:55] MED LIST changes: +BUPR150T24 PO; -BUPR150T7 PO; -LISI10TA2 PO; +LISI10TA25 PO
== END 2020-08-30 19:58 | disposition other institution (70) ==
LOC: EDUNIT# 19:55 → ER 19:56
DX: R09.89 Other specified symptoms and signs involving the circulatory and respiratory systems (principal); R50.9 Fever, unspecified; R06.02 Shortness of breath

== ENCOUNTER → 2020-09-28 | Outpatient (CLI) | payer MEDICAID ==
--- NOTE | 2020-09-28 21:46 | Diagnostic Imaging Report ---
INDICATION: Left breast pain. EXAMINATION: Unilateral left 2D and 3D diagnostic mammography was performed. BB markers were placed at area pain in the upper and slightly inner left breast. The current study was also evaluated with a Computer Aided Detection (CAD) system. FINDINGS: There are scattered fibroglandular densities in the left breast. No mass or malignant appearing microcalcification is seen. There are benign calcifications in the left breast. Axilla is unremarkable. IMPRESSION: No mammographic features suspicious for malignancy are identified. Even so, directed sonographic interrogation of the area of pain in the upper inner left breast is recommended and will be performed today. ACR BI-RADS Category 0: Incomplete. (Needs additional imaging evaluation). Result letter will be mailed to the patient. Note: At least 10% of breast cancer is not imaged by mammography. Dictated by: Dictated on workstation # [id number]
--- NOTE | 2020-09-28 22:17 | Diagnostic Imaging Report ---
INDICATION: Pain in the upper inner left breast. COMPARISON: Correlation to diagnostic mammogram from earlier the same day. EXAMINATION: Sonographic interrogation of the area of pain in the left breast was performed. This corresponds to the 10:00 to 11:00 location. FINDINGS: No sonographic abnormality is detected. No solid or cystic mass is detected. IMPRESSION: No significant abnormality is detected. ACR BI-RADS Category 1: Negative. Result letter will be mailed to the patient. Note: At least 10% of breast cancer is not imaged by mammography. Dictated by: Dictated on workstation # [id number]
== END ==
LOC: RAD 14:44
PROVIDERS: ATTEND Student in an Organized Health Care Education/Training Program
DX: N64.4 Mastodynia (principal)
CPT/HCPCS: 76642; 77066; G0279; 77062

== ENCOUNTER 2021-03-30 20:23 | Emergency (ER) | payer MEDICAID ==
[~2021-03-30] VITALS: Ht 157.5 cm; Wt 138.3 kg
[2021-03-30 21:09] LABS: BILIRUBIN,URINE NEGATIVE (NEGATIVE); CLARITY,URINE CLEAR; COLOR,URINE YELLOW; GLUCOSE, URINE (UA) 3+ (NEGATIVE); KETONES,URINE NEGATIVE (NEGATIVE); LEUKOCYTE ESTERASE ,URINE NEGATIVE (NEGATIVE); NITRITE,URINE NEGATIVE (NEGATIVE); PROTEIN,URINE NEGATIVE (NEGATIVE)
[2021-03-30 21:37] LABS: BACTERIA,URINE FEW /HPF; HYALINE CASTS, URINE RARE /LPF; WBC,URINE 0-2 /HPF
[2021-03-30] MEDS ORDERED: D-ME118S33 PO (22:06)
--- NOTE | 2021-03-30 22:07 | ED Cough/URI ---
General Chief Complaint: COVID19 Suspect/Confirmed Stated Complaint: COUGH/HEADACHE/FEVER/CHILLS Source: patient Exam Limitations: no limitations History of Present Illness Date Seen by Provider: Mar 30, 2021 Time Seen by Provider: 22:03 Initial Comments Cough runny nose sore throat body aches onset today. Sister with whom she spends quite a bit of time is positive for Covid. Timing/Duration: this morning Severity/Quality: moderate Associated Symptoms: cough Allergies and Home Medications Allergies Coded Allergies: No Known Drug Allergies (Unverified , 05/05/19) Patient Home Medication List Home Medication List Reviewed: Yes Atorvastatin Calcium (Atorvastatin Calcium) 20 Mg Tablet, 20 MG PO DAILY, (Reported) Entered as Reported by: JEOVANNY SPENCER on 01/25/1930 Bupropion HCl (Bupropion Xl) 150 Mg Tab.er.24h, 150 MG PO DAILY, (Reported) Entered as Reported by: JEOVANNY SPENCER on 01/25/1932 Lisinopril (Lisinopril) 10 Mg Tablet, 10 MG PO DAILY, (Reported) Entered as Reported by: JEOVANNY SPENCER on 01/25/1932 Metformin HCl (Metformin HCl ER) 500 Mg Tab.er.24h, 500 MG PO DAILY, (Reported) Entered as Reported by: JEOVANNY SPENCER on 01/25/1932 Nitrofurantoin Monohyd/M-Cryst (Macrobid 100 mg Capsule) 100 Mg Capsule, 100 MG PO BID Prescribed by: ALEXA JULIEN on 01/25/19141 Sitagliptin Phosphate (Januvia) 100 Mg Tablet, 100 MG PO DAILY, (Reported) Entered as Reported by: JEOVANNY SPENCER on 01/25/1932 Review of Systems Review of Systems Constitutional: see HPI EENTM: see HPI, nose congestion Respiratory: see HPI, cough Cardiovascular: no symptoms reported Genitourinary: no symptoms reported Musculoskeletal: no symptoms reported Skin: no symptoms reported Psychiatric/Neurological: No Symptoms Reported Hematologic/Lymphatic: No Symptoms Reported Immunological/Allergic: no symptoms reported Past Ualihmm-Yhdnjl-Tqjqre Hx Immunizations Up To Date PED Vaccines UTD: Yes Seasonal Allergies Seasonal Allergies: No Past Medical History Surgeries: Yes Section, Tonsillectomy Respiratory: No Cardiac: Yes High Cholesterol, Hypertension Neurological: No Reproductive Disorders: No Genitourinary: No Gastrointestinal: No Musculoskeletal: No Endocrine: Yes (MORBID OBESITY HAS NEVER CHECKED HER BLOOD SUGAR) Diabetes, Non-Insulin dep HEENT: No Cancer: No Psychosocial: No Integumentary: No Blood Disorders: No Physical Exam Capillary Refill : Height: '" Weight: lbs. oz. kg; 55.00 BMI Method: General Appearance: WD/WN, no apparent distress, obese, other (Heart rate of 100 oxygen 98% room air.) Eyes: Bilateral Eye Normal Inspection, Bilateral Eye PERRL, Bilateral Eye EOMI HEENT: PERRL/EOMI, normal ENT inspection Neck: non-tender, full range of motion Respiratory: no respiratory distress, no accessory muscle use Cardiovascular: no murmur, tachycardia Gastrointestinal: normal bowel sounds, non tender, soft Neurologic/Psychiatric: alert, normal mood/affect, oriented x 3 Skin: normal color, warm/dry Progress/Results/Core Measures Suspected Sepsis SIRS Temperature: Pulse: Respiratory Rate: Blood Pressure / Mean: Results/Orders Lab Results Laboratory Tests Test 03/30/21 20:43 03/30/21 20:54 Range/Units Influenza Type A (RT-PCR) Not Detected Not Detecte Influenza Type B (RT-PCR) Not Detected Not Detecte SARS-CoV-2 RNA (RT-PCR) Not Detected Not Detecte Urine Color YELLOW Urine Clarity CLEAR Urine pH 6.0 5-9 Urine Specific [place] >=1.030 1.016-1.022 Urine Protein NEGATIVE NEGATIVE Urine Glucose (UA) 3+ H NEGATIVE Urine Ketones NEGATIVE NEGATIVE Urine Nitrite NEGATIVE NEGATIVE Urine Bilirubin NEGATIVE NEGATIVE Urine Urobilinogen 0.2 < = 1.0 MG/DL Urine Leukocyte Esterase NEGATIVE NEGATIVE Urine RBC (Auto) NEGATIVE NEGATIVE Urine RBC NONE /HPF Urine WBC 0-2 /HPF Urine Squamous Epithelial Cells 2-5 /HPF Urine Crystals NONE /LPF Urine Bacteria FEW H /HPF Urine Casts PRESENT /LPF Urine Hyaline Casts RARE /LPF Urine Mucus SMALL H /LPF Urine Culture Indicated YES My Orders Orders - JACK BECKHAM APRN Covid 19 Inhouse Test (03/30/21 20:35) Influenza A And B By Pcr (03/30/21 20:35) Ua Culture If Indicated (03/30/21 21:03) Urine Culture (03/30/21 20:54) Vital Signs/I&O Capillary Refill : Departure Impression Primary Impression: Viral syndrome Disposition: 01 HOME, SELF-CARE Condition: Stable Departure-Patient Inst. Decision time for Depature: 22:05 Referrals: REJI RING MD (PCP) Primary Care Physician Patient Instructions: Viral Syndrome (DC) Add. Discharge Instructions: 1. Tylenol and ibuprofen for body aches and fever. Return to ER for any worsening symptoms. You should be reswabbed if you are still symptomatic on Saturday. All discharge instructions reviewed with patient and/or family. Voiced understanding. Scripts D-Methorphan Hb/P-Epd HCl/Bpm (Bromfed Dm Cough Syrup) 118 Ml Syrup 5 ML PO Q4H PRN for CONGESTION for 7 Days, #120 ML Prov: JACK BECKHAM APRN 03/30/21 Work/School Note: Work Release Form Date Seen in the Emergency Department: Mar 30, 2021 Return to Work: Apr 03, 2021 JACK BECKHAM APRN Mar 30, 2021 22:06
[2021-03-30 22:20] VITALS: BP 136/86
== END 2021-03-30 22:20 ==
LOC: EDUNIT# 20:23 → ER 20:30
DX: B34.9 Viral infection, unspecified (principal); I10 Essential (primary) hypertension; R00.0 Tachycardia, unspecified; E66.01 Morbid (severe) obesity due to excess calories; E78.00 Pure hypercholesterolemia, unspecified; E11.9 Type 2 diabetes mellitus without complications; Z68.43 Body mass index [BMI] 50.0-59.9, adult; Z20.822 Contact with and (suspected) exposure to COVID-19; Z79.84 Long term (current) use of oral hypoglycemic drugs; Z79.899 Other long term (current) drug therapy
CPT/HCPCS: 81000; 87088; 87636; 99283

== ENCOUNTER 2021-09-30 23:51 | Emergency (ER) | payer MEDICAID ==
[~2021-09-30] VITALS: Ht 162.5 cm; Wt 140.5 kg
[~2021-09-30 23:51] MED LIST changes: +D-ME118S33 PO
[2021-10-01 00:21] LABS: BILIRUBIN,URINE NEGATIVE (NEGATIVE); CLARITY,URINE CLEAR; COLOR,URINE YELLOW; GLUCOSE, URINE (UA) 3+ (NEGATIVE); KETONES,URINE NEGATIVE (NEGATIVE); LEUKOCYTE ESTERASE ,URINE NEGATIVE (NEGATIVE); NITRITE,URINE NEGATIVE (NEGATIVE); PROTEIN,URINE NEGATIVE (NEGATIVE)
[2021-10-01 00:29] VITALS: BP 152/96
[2021-10-01 00:32] LABS: BACTERIA,URINE NEGATIVE /HPF; RBC,URINE 0-2 /HPF; SQUAMOUS EPITHELIAL CELL,UR 0-2 /HPF; WBC,URINE 0-2 /HPF
--- NOTE | 2021-10-01 00:54 | ED GU-Female ---
General Chief Complaint: OB < 20 WEEKS Stated Complaint: BLEEDING,POSS Nursing Triage Note: PT AMBULATORY INTO ER WITH COMPLAINT OF SPOTTING AFTER HARD COUGH. PT RECENTLY FOUND OUT SHE IS , BUT DUE TO IRREGULAR MENSTURAL CYCLES PT IS UNSURE OF HOW FAR SHE IS ALONG. PT DID PROVIDE URINE SAMPLE AND NO SPOTTING AT THIS TIME. Source: patient Exam Limitations: no limitations History of Present Illness Date Seen by Provider: Oct 01, 2021 Time Seen by Provider: 00:30 Initial Comments The patient and her significant other present to the ER with chief complaint that she had a little spotting of bright red blood which she thinks is from the vagina on wiping after hard coughing episode. She found out on Saturday, 6 days ago that she is with a positive test [facility] She has a follow-up appointment October [address] Asher. She is a G3, P1 status post not on control with LMP of approximately 2 months ago putting her at roughly 8 weeks. She says she does not routinely pay any attention to her LMP's because they have been trying to be for the past 8 years unsuccessfully. She is not having any blood clots or pain. No dyspareunia, dysuria or diarrhea. She has been dealing with constipation for the past couple weeks. She took MiraLAX once a day for couple days without success. No other abdominal surgeries. She is a type II diabetic on Lantus. Primary care provider is Dr. Hummel. Allergies and Home Medications Allergies Coded Allergies: No Known Drug Allergies (Unverified , 05/05/19) Patient Home Medication List Home Medication List Reviewed: Yes Atorvastatin Calcium (Atorvastatin Calcium) 20 Mg Tablet, 20 MG PO DAILY, (Re ported) Entered as Reported by: JEOVANNY SPENCER on 01/25/1930 Bupropion HCl (Bupropion Xl) 150 Mg Tab.er.24h, 150 MG PO DAILY, (Reported) Entered as Reported by: JEOVANNY SPENCER on 01/25/1932 D-Methorphan Hb/P-Epd HCl/Bpm (Bromfed Dm Cough Syrup) 118 Ml Syrup, 5 ML PO Q4H PRN for CONGESTION Prescribed by: JACK BECKHAM on 03/30/212205 Lisinopril (Lisinopril) 10 Mg Tablet, 10 MG PO DAILY, (Reported) Entered as Reported by: JEOVANNY SPENCER on 01/25/1932 Metformin HCl (Metformin HCl ER) 500 Mg Tab.er.24h, 500 MG PO DAILY, (Reported) Entered as Reported by: JEOVANNY SPENCER on 01/25/1932 Nitrofurantoin Monohyd/M-Cryst (Macrobid 100 mg Capsule) 100 Mg Capsule, 100 MG PO BID Prescribed by: ALEXA JULIEN on 01/25/19141 Sitagliptin Phosphate (Januvia) 100 Mg Tablet, 100 MG PO DAILY, (Reported) Entered as Reported by: JEOVANNY SPENCER on 01/25/1932 Review of Systems Review of Systems Constitutional: No chills, No fever, No malaise EENTM: No ear discharge, No ear pain Respiratory: cough; No short of breath Cardiovascular: No chest pain, No edema Gastrointestinal: No abdominal pain; constipation; No diarrhea, No nausea Genitourinary: denies burning, denies discharge, denies dysuria Musculoskeletal: No back pain, No joint pain All Other Systemes Reviewed Negative Unless Noted: Yes Past Bjwjnog-Znckoq-Kektgw Hx Patient Social History Tobacco Use?: Yes Tobacco type used: Cigarettes Smoking Status: Current Everyday Smoker Use of E-Cig and/or Vaping dev: No Substance use?: No Alcohol Use?: No Pt feels they are or have been: No Immunizations Up To Date PED Vaccines UTD: Yes Influenza Vaccine Up-to-Date: Yes; Up-to-Date Seasonal Allergies Seasonal Allergies: No Past Medical History Surgeries: Yes Section, Tonsillectomy Respiratory: No Cardiac: Yes High Cholesterol, Hypertension Neurological: No Reproductive Disorders: No Genitourinary: No Gastrointestinal: No Musculoskeletal: No Endocrine: Yes (MORBID OBESITY HAS NEVER CHECKED HER BLOOD SUGAR) Diabetes, Non-Insulin dep HEENT: No Cancer: No Psychosocial: No Integumentary: No Blood Disorders: No Physical Exam Vital Signs Vital Signs - First Documented 10/01/21 00:29 Temp 36.7 Pulse 94 Resp 18 B/P (MAP) 152/96 (114) Pulse Ox 97 O2 Delivery Room Air Capillary Refill : Less Than 3 Seconds Height, Weight, BMI Height: '" Weight: lbs. oz. kg; 53.00 BMI Method: General Appearance: WD/WN, no apparent distress HEENT: PERRL/EOMI, pharynx normal Neck: full range of motion, normal inspection Cardiovascular: normal peripheral pulses, regular rate, rhythm Respiratory: no respiratory distress, no accessory muscle use Gastrointestinal: non tender, soft, no organomegaly Neurologic/Psychiatric: alert, normal mood/affect, oriented x 3 Skin: normal color, warm/dry Progress/Results/Core Measures Suspected Sepsis SIRS Temperature: Pulse: 94 Respiratory Rate: 18 Laboratory Tests 10/01/21 00:55: White Blood Count 13.3H Blood Pressure 152 /96 Mean: 114 Laboratory Tests 10/01/21 00:55: Creatinine 0.69, Platelet Count 362 Results/Orders Lab Results Laboratory Tests Test 10/01/21 00:09 10/01/21 00:55 Range/Units Urine Color YELLOW Urine Clarity CLEAR Urine pH 6.0 5-9 Urine Specific [place] >=1.030 1.016-1.022 Urine Protein NEGATIVE NEGATIVE Urine Glucose (UA) 3+ H NEGATIVE Urine Ketones NEGATIVE NEGATIVE Urine Nitrite NEGATIVE NEGATIVE Urine Bilirubin NEGATIVE NEGATIVE Urine Urobilinogen 0.2 < = 1.0 MG/DL Urine Leukocyte Esterase NEGATIVE NEGATIVE Urine RBC (Auto) 1+ H NEGATIVE Urine RBC 0-2 /HPF Urine WBC 0-2 /HPF Urine Squamous Epithelial Cells 0-2 /HPF Urine Crystals NONE /LPF Urine Bacteria NEGATIVE /HPF Urine Casts NONE /LPF Urine Mucus NEGATIVE /LPF Urine Culture Indicated NO White Blood Count 13.3 H 4.3-11.0 10^3/uL Red Blood Count 5.25 H 3.80-5.11 10^6/uL Hemoglobin 14.3 11.5-16.0 g/dL Hematocrit 45 35-52 % Mean Corpuscular Volume 85 80-99 fL Mean Corpuscular Hemoglobin 27 25-34 pg Mean Corpuscular Hemoglobin Concent 32 32-36 g/dL Red Cell Distribution Width 14.2 10.0-14.5 % Platelet Count 362 130-400 10^3/uL Mean Platelet Volume 9.8 9.0-12.2 fL Immature Granulocyte % (Auto) 0 % Neutrophils (%) (Auto) 59 42-75 % Lymphocytes (%) (Auto) 30 12-44 % Monocytes (%) (Auto) 6 0-12 % Eosinophils (%) (Auto) 4 0-10 % Basophils (%) (Auto) 1 0-10 % Neutrophils # (Auto) 7.8 1.8-7.8 10^3/uL Lymphocytes # (Auto) 4.0 1.0-4.0 10^3/uL Monocytes # (Auto) 0.8 0.0-1.0 10^3/uL Eosinophils # (Auto) 0.6 H 0.0-0.3 10^3/uL Basophils # (Auto) 0.1 0.0-0.1 10^3/uL Immature Granulocyte # (Auto) 0.0 0.0-0.1 10^3/uL Sodium Level 137 135-145 MMOL/L Potassium Level 4.0 3.6-5.0 MMOL/L Chloride Level 105 98-107 MMOL/L Carbon Dioxide Level 20 L 21-32 MMOL/L Anion Gap 12 5-14 MMOL/L Blood Urea Nitrogen 7 7-18 MG/DL Creatinine 0.69 0.60-1.30 MG/DL Estimat Glomerular Filtration Rate 120 BUN/Creatinine Ratio 10 Glucose Level 211 H 70-105 MG/DL Calcium Level 9.1 8.5-10.1 MG/DL My Orders Orders - YADY NELSON Ua Culture If Indicated (09/30/21 23:54) Urine Bedside (09/30/21 23:54) Cbc With Automated Diff (10/01/21 00:48) Basic Metabolic Panel (10/01/21 00:48) Hcg,Quantitative (10/01/21 01:51) Vital Signs/I&O 10/01/21 00:29 Temp 36.7 Pulse 94 Resp 18 B/P (MAP) 152/96 (114) Pulse Ox 97 O2 Delivery Room Air Capillary Refill : Less Than 3 Seconds Blood Pressure Mean: 114 Progress Note #1: Time: 00:52 Progress Note Patient's not having any present discomfort so an ectopic is less likely and she can follow-up with Dr. Asher for imaging. Return precautions were given. Were going to check some labs including a beta hCG and ABO Rh. Urinalysis unr emarkable. Bedside is positive. Patient is okay with this plan to follow-up next week with Dr. Asher to have repeat beta-hCG. We will provide her with an outpatient order form Progress Note #2: Time: 01:50 Progress Note Patient is sitting comfortably. She complains of an occasional ache but does not want anything for it. Again this is more likely related to her constipation and we have given her recommendations and return precautions. ABO Rh came back as O+ already on file. Departure Impression Primary Impression: Vaginal bleeding affecting early Additional Impression: Constipation Qualified Codes: K59.00 - Constipation, unspecified Disposition: HOME, SELF-CARE Condition: Stable Departure-Patient Inst. Decision time for Depature: 01:51 Referrals: SARKIS ASHER MD, BENJAMEN H MD (PCP/Family) Primary Care Physician Patient Instructions: Bleeding In Early , Constipation, Adult (DC) Add. Discharge Instructions: A little bit of bleeding early in can be nothing concerning or could be an early marker of a miscarriage. After 10/03/2021 you can go to the lab and get a repeat quantitative hCG and this lab will be sent to Dr. Asher to be compared to the lab from today. This will help determine whether your is progressing normally. Dr. Asher will also help you set up an ult rasound. Call his office on Saturday to let them know you were here and set up follow-up for your repeat blood test. Drink plenty of fluids. If you have some pain use Tylenol 1000 mg every 8 hours as needed. Start taking MiraLAX 1 capful in 6 to 8 ounces 3-6 times a day until you have good results for your constipation. You may use an enema once or twice a day for difficult constipation. Return to the ER promptly for severe, intractable pain that doubles you over and is not controlled by Tylenol. If you have fever above 102.5 or intractable vomiting then you should also return to the ER or talk to your it business systems analyst the same day if possible. Once you have your constipation under control then start taking vitamins daily. I would strongly encourage you to reduce smoking as this has been shown to cause low birthweight's with babies. All discharge instructions reviewed with patient and/or family. Voiced understanding. Copy Copies To 1: SARKIS ASHER MD, TITUS J Oct 01, 2021 00:54
[2021-10-01 01:06] LABS: BASOPHILS # (AUTO) 0.1 10^3/uL (0.0-0.1); BASOPHILS % (AUTO) 1 % (0-10); EOSINOPHILS # (AUTO) 0.6 10^3/uL (0.0-0.3); EOSINOPHILS % (AUTO) 4 % (0-10); HEMATOCRIT 45 % (35-52); HEMOGLOBIN 14.3 g/dL (11.5-16.0); LYMPHOCYTES % (AUTO) 30 % (12-44); MEAN CORPUSCULAR HEMOGLOBIN 27 pg (25-34); MEAN CORPUSCULAR HGB CONC 32 g/dL (32-36); MEAN CORPUSCULAR VOLUME 85 fL (80-99); MEAN PLATELET VOLUME 9.8 fL (9.0-12.2); MONOCYTES # (AUTO) 0.8 10^3/uL (0.0-1.0); MONOCYTES % (AUTO) 6 % (0-12); NEUTROPHILS # (AUTO) 7.8 10^3/uL (1.8-7.8); NEUTROPHILS % (AUTO) 59 % (42-75); PLATELET COUNT 362 10^3/uL (130-400); WHITE BLOOD COUNT 13.3 10^3/uL (4.3-11.0)
[2021-10-01 01:19] LABS: CALCIUM 9.1 MG/DL (8.5-10.1)
[2021-10-01 01:23] LABS: CREATININE SERUM 0.69 MG/DL (0.60-1.30)
== END 2021-10-01 01:59 | disposition home or self-care (01) ==
LOC: EDUNIT# 23:51 → ER 23:53
DX: O20.9 Hemorrhage in early pregnancy, unspecified (principal); O99.611 Diseases of the digestive system complicating pregnancy, first trimester; K59.00 Constipation, unspecified; O99.211 Obesity complicating pregnancy, first trimester; E66.01 Morbid (severe) obesity due to excess calories; O99.331 Smoking (tobacco) complicating pregnancy, first trimester; F17.210 Nicotine dependence, cigarettes, uncomplicated; Z3A.08 8 weeks gestation of pregnancy; Z68.43 Body mass index [BMI] 50.0-59.9, adult
CPT/HCPCS: 36415; 80048; 81000; 84702; 84703; 85025

== ENCOUNTER → 2021-10-03 | Outpatient (CLI) | payer MEDICAID | LOC: LAB | PROVIDERS: ATTEND Emergency Medicine | DX: O26.859 Spotting complicating pregnancy, unspecified trimester (principal); Z3A.00 Weeks of gestation of pregnancy not specified | CPT/HCPCS: 36415; 84702 ==

== ENCOUNTER 2021-10-04 20:52 | Emergency (ER) | payer MEDICAID ==
[~2021-10-04] VITALS: Ht 157 cm; Wt 140.6 kg
--- NOTE | 2021-10-04 21:27 | ED GU-Female ---
General Chief Complaint: - Reproductive Stated Complaint: SPOTTING,CRAMPING DOSEN'T KNOW HOW FAR ALONG SHE I Nursing Triage Note: PT SPOTTING ON SATURDAY, TODAY INCREASED CRAMPING AND BLEEDING. PT HAD HCG TEST YESTERDAY Source: patient Exam Limitations: no limitations (SWETA CHERY) History of Present Illness Date Seen by Provider: Oct 04, 2021 Time Seen by Provider: 21:25 Initial Comments Patient is a 31-year-old female with a history of PCOS who presents ED with some vaginal bleeding and lower abdominal cramping. She states cramping started this morning around her pelvic area. She also reports bright red blood with wiping with urination. No heavy vaginal bleeding or passing clots or tissue. She was seen here on Saturday diagnosed with vaginal bleeding during early . Had a beta quant of 133. She states Dr. Asher her OB ordered a outpatient beta quant performed yesterday. She had some vaginal bleeding on Saturday but no spotting until today with urination. She is unsure when her last menstrual cycle. She reports difficulty with over the past 8 years. She has history of IUD use in the past. She is with a history of miscarriage in the past. She does have a daughter that lives at home. No vomiting, fever, severe abdominal pain, chest pain, shortness of breath (SWETA CHERY) Allergies and Home Medications Allergies Coded Allergies: No Known Drug Allergies (Unverified , 05/05/19) Patient Home Medication List Home Medication List Reviewed: Yes (SWETA CHERY) Atorvastatin Calcium (Atorvastatin Calcium) 20 Mg Tablet, 20 MG PO DAILY, (Reported) Entered as Reported by: JEOVANNY SPENCER on [birth year]/25/1932 Bupropion HCl (Bupropion Xl) 150 Mg Tab.er.24h, 150 MG PO DAILY, (Reported) Entered as Reported by: JEOVANNY SPENCER on 01/25/1932 D-Methorphan Hb/P-Epd HCl/Bpm (Bromfed Dm Cough Syrup) 118 Ml Syrup, 5 ML PO Q4H PRN for CONGESTION Prescribed by: JACK BECKHAM on 03/30/212205 Lisinopril (Lisinopril) 10 Mg Tablet, 10 MG PO DAILY, (Reported) Entered as Reported by: JEOVANNY SPENCER on 01/25/1932 Metformin HCl (Metformin HCl ER) 500 Mg Tab.er.24h, 500 MG PO DAILY, (Reported) Entered as Reported by: JEOVANNY SPENCER on 01/25/1932 Nitrofurantoin Monohyd/M-Cryst (Macrobid 100 mg Capsule) 100 Mg Capsule, 100 MG PO BID Prescribed by: ALEXA JULIEN on 01/25/19141 Sitagliptin Phosphate (Januvia) 100 Mg Tablet, 100 MG PO DAILY, (Reported) Entered as Reported by: JEOVANNY SPENCER on 01/25/1932 Review of Systems Review of Systems Constitutional: No chills, No diaphoresis, No malaise, No weakness EENTM: No ear pain Respiratory: No cough, No dyspnea on exertion Cardiovascular: No chest pain Gastrointestinal: abdominal pain; No diarrhea, No nausea, No vomiting Genitourinary: denies burning, denies discharge; other (vaginal bleeding) Musculoskeletal: No back pain, No joint pain Skin: No change in color, No change in hair/nails Psychiatric/Neurological: Denies Anxiety, Denies Depressed Endocrine: Denies Excessive Sweating (SWETA CHERY) All Other Systemes Reviewed Negative Unless Noted: Yes (SWETA CHERY) Past Vujcpxt-Eqlmpj-Rtanyf Hx Immunizations Up To Date PED Vaccines UTD: Yes (SWETA CHERY) Seasonal Allergies Seasonal Allergies: No (SWETA CHERY) Past Medical History Surgeries: Yes Section, Tonsillectomy Respiratory: No Cardiac: Yes High Cholesterol, Hypertension Neurological: No Reproductive Disorders: No Genitourinary: No Gastrointestinal: No Musculoskeletal: No Endocrine: Yes (MORBID OBESITY HAS NEVER CHECKED HER BLOOD SUGAR) Diabetes, Non-Insulin dep HEENT: No Cancer: No Psychosocial: No Integumentary: No Blood Disorders: No (SWETA CHERY) Physical Exam Vital Signs Vital Signs - First Documented 10/04/21 21:04 Pulse 102 Resp 22 B/P (MAP) 148/107 (121) (NIGEL DELUCA MD) Vital Signs Capillary Refill : Less Than 3 Seconds (SWETA CHERY) Height, Weight, BMI Height: '" Weight: lbs. oz. kg; 57.00 BMI Method: General Appearance: WD/WN, no apparent distress HEENT: PERRL/EOMI, normal ENT inspection, TMs normal, pharynx normal Neck: non-tender, full range of motion, supple, normal inspection Cardiovascular: regular rate, rhythm, no edema, no gallop, no JVD Respiratory: chest non-tender, lungs clear, normal breath sounds, no respiratory distress, no accessory muscle use Gastrointestinal: normal bowel sounds, soft, no organomegaly, tenderness (Suprapubic tenderness) Back: normal inspection, no CVA tenderness, no vertebral tenderness Extremities: normal range of motion, non-tender, normal inspection, no pedal edema Neurologic/Psychiatric: emt II-XII nml as tested, no motor/sensory deficits, alert, normal mood/affect, oriented x 3 Skin: normal color, warm/dry (SWETA CHERY) Progress/Results/Core Measures Suspected Sepsis SIRS Temperature: Pulse: 102 Respiratory Rate: 22 Blood Pressure 148 /107 Mean: 121 (SWETA CHERY) Results/Orders Lab Results Laboratory Tests Test 10/04/21 21:42 Range/Units Urine Color YELLOW Urine Clarity CLEAR Urine pH 5.5 5-9 Urine Specific [place] 1.025 H 1.016-1.022 Urine Protein NEGATIVE NEGATIVE Urine Glucose (UA) 3+ H NEGATIVE Urine Ketones NEGATIVE NEGATIVE Urine Nitrite NEGATIVE NEGATIVE Urine Bilirubin NEGATIVE NEGATIVE Urine Urobilinogen 0.2 < = 1.0 MG/DL Urine Leukocyte Esterase NEGATIVE NEGATIVE Urine RBC (Auto) 3+ H NEGATIVE Urine RBC 5-10 H /HPF Urine WBC 0-2 /HPF Urine Squamous Epithelial Cells 0-2 /HPF Urine Crystals NONE /LPF Urine Bacteria FEW H /HPF Urine Casts NONE /LPF Urine Mucus NEGATIVE /LPF Urine Culture Indicated YES (NIGEL DELUCA MD) Vital Signs/I&O 10/04/21 10/04/21 21:04 21:33 Pulse 102 102 Resp 22 B/P (MAP) 148/107 (121) 148/107 (NIGEL DELUCA MD) Vital Signs/I&O Capillary Refill : Less Than 3 Seconds (SWETA CHERY) Blood Pressure Mean: 121 Departure Communication (PCP) Patient had a beta quant on the and beta quant yesterday of 11. She is O+. She is not a RhoGAM candidate. Suprapubic discomfort with bright red blood with wiping. History of PCOS. She is G3, P1. Concerning for miscarriage. She does not appear toxic or septic. Concerning for miscarriage at this time. Unclear how long she was . She is unsure when her last menstrual cycle with a history of irregular menstrual cycle secondary to her PCOS. Recommend outpatient follow-up with her OB Dr. Asher for further evaluation. return precautions were discussed (SWETA CHERY) Impression Primary Impression: Miscarriage Additional Impression: Vaginal bleeding affecting early Disposition: HOME, SELF-CARE Condition: Stable Departure-Patient Inst. Decision time for Depature: 21:26 (SWETA CHERY) Referrals: SARKIS ASHER MD, BENJAMEN H MD (PCP/Family) Primary Care Physician Patient Instructions: Miscarriage (DC) ATTENDING PHYSICIAN NOTE: I was physically present as attending physician in the emergency department during the care of this patient, but I was not directly involved in the decision making or delivery of care for this patient. (NIGEL DELUCA MD) SWETA CHERY Oct 04, 2021 21:26 NIGEL DELUCA MD Oct 05, 2021 07:39
[2021-10-04 21:33] VITALS: BP 148/107
[2021-10-04 21:45] LABS: BILIRUBIN,URINE NEGATIVE (NEGATIVE); CLARITY,URINE CLEAR; COLOR,URINE YELLOW; GLUCOSE, URINE (UA) 3+ (NEGATIVE); KETONES,URINE NEGATIVE (NEGATIVE); LEUKOCYTE ESTERASE ,URINE NEGATIVE (NEGATIVE); NITRITE,URINE NEGATIVE (NEGATIVE); PH,URINE 5.5 (5-9); PROTEIN,URINE NEGATIVE (NEGATIVE)
[2021-10-04 22:01] LABS: BACTERIA,URINE FEW /HPF; SQUAMOUS EPITHELIAL CELL,UR 0-2 /HPF; WBC,URINE 0-2 /HPF
== END 2021-10-04 21:33 | disposition home or self-care (01) ==
LOC: EDUNIT# 20:52 → ER 20:56
DX: O03.9 Complete or unspecified spontaneous abortion without complication (principal)
CPT/HCPCS: 81000; 87088; 99281

== ENCOUNTER → 2022-04-12 | Outpatient (CLI) | payer MEDICAID ==
--- NOTE | 2022-04-12 14:05 | Diagnostic Imaging Report ---
PROCEDURE: US Abdomen, limited. TECHNIQUE: Multiple realtime grayscale images were obtained over the abdomen in various projections. INDICATION: Abdominal pain. COMPARISON: None FINDINGS: Liver is enlarged. It measures 22.6 cm in length and demonstrates diffuse parenchymal hyper echogenicity. No focal hepatic masses are seen. Portal vein shows normal hepatic flow. There is no sonographic evidence of intra or extra hepatic biliary ductal dilatation. Common bile duct is within normal limits at 3 mm in diameter. Gallbladder is difficult to adequately visualize due to patient body habitus. Pancreas is also not well-visualized. The visualized portions of the aorta and IVC are grossly unremarkable. There is no ascites. Right kidney has a normal sonographic appearance and measures 9.3 cm in length. There is no evidence of hydronephrosis, calculus, nor mass. IMPRESSION: 1. Hepatomegaly with hepatic steatosis. 2. Suboptimal visualization of the gallbladder due to patient body habitus. If there is concern for acute cholecystitis, HIDA scan is advised. Dictated by: Dictated on workstation # [id number]
== END ==
LOC: RAD 07:57
PROVIDERS: ATTEND Student in an Organized Health Care Education/Training Program
DX: K76.0 Fatty (change of) liver, not elsewhere classified (principal); R16.2 Hepatomegaly with splenomegaly, not elsewhere classified
CPT/HCPCS: 76705

== ENCOUNTER 2022-05-22 17:53 | Emergency (ER) | payer OTHER, MEDICAID ==
[~2022-05-22] VITALS: Ht 157 cm; Wt 140.6 kg
[2022-05-22 18:39] LABS: BILIRUBIN,URINE NEGATIVE (NEGATIVE); CLARITY,URINE SL CLOUDY; COLOR,URINE YELLOW; GLUCOSE, URINE (UA) 3+ (NEGATIVE); KETONES,URINE NEGATIVE (NEGATIVE); LEUKOCYTE ESTERASE ,URINE NEGATIVE (NEGATIVE); NITRITE,URINE NEGATIVE (NEGATIVE); PH,URINE 5.5 (5-9); PROTEIN,URINE NEGATIVE (NEGATIVE)
[2022-05-22 19:03] LABS: BACTERIA,URINE FEW /HPF
[2022-05-22 19:12] LABS: AMPHETAMINE SCREEN, URINE NEGATIVE (NEGATIVE); BARBITURATE SCREEN URINE NEGATIVE (NEGATIVE); BENZODIAZEPINES SCREEN URINE NEGATIVE (NEGATIVE); CANNABINOID SCREEN, URINE NEGATIVE (NEGATIVE); COCAINE SCREEN URINE NEGATIVE (NEGATIVE); METHADONE STAT NEGATIVE (NEGATIVE); OPIATE SCREEN URINE NEGATIVE (NEGATIVE); OXYCODONE STAT NEGATIVE (NEGATIVE); PROPOXYPHENE STAT NEGATIVE (NEGATIVE); TRICYCLIC ANTIDEPRESSANTS SCRE NEGATIVE (NEGATIVE)
[2022-05-22 19:13] LABS: BASOPHILS # (AUTO) 0.1 10^3/uL (0.0-0.1); BASOPHILS % (AUTO) 1 % (0-10); EOSINOPHILS # (AUTO) 0.5 10^3/uL (0.0-0.3); EOSINOPHILS % (AUTO) 4 % (0-10); HEMATOCRIT 51 % (35-52); HEMOGLOBIN 16.6 g/dL (11.5-16.0); LYMPHOCYTES # (AUTO) 3.6 10^3/uL (1.0-4.0); LYMPHOCYTES % (AUTO) 29 % (12-44); MEAN CORPUSCULAR HEMOGLOBIN 27 pg (25-34); MEAN CORPUSCULAR HGB CONC 33 g/dL (32-36); MEAN CORPUSCULAR VOLUME 83 fL (80-99); MEAN PLATELET VOLUME 10.2 fL (9.0-12.2); MONOCYTES # (AUTO) 0.8 10^3/uL (0.0-1.0); MONOCYTES % (AUTO) 6 % (0-12); NEUTROPHILS # (AUTO) 7.4 10^3/uL (1.8-7.8); NEUTROPHILS % (AUTO) 61 % (42-75); PLATELET COUNT 318 10^3/uL (130-400); WHITE BLOOD COUNT 12.3 10^3/uL (4.3-11.0)
[2022-05-22 19:28] LABS: ALBUMIN 3.9 GM/DL (3.2-4.5); POTASSIUM 4.2 MMOL/L (3.6-5.0)
[2022-05-22 19:30] LABS: CALCIUM 9.5 MG/DL (8.5-10.1)
[2022-05-22 19:31] LABS: TOTAL PROTEIN 7.7 GM/DL (6.4-8.2)
[2022-05-22 19:33] LABS: BILIRUBIN,TOTAL 0.4 MG/DL (0.1-1.0)
[2022-05-22 19:34] LABS: CREATININE SERUM 0.7 MG/DL (0.60-1.30)
--- NOTE | 2022-05-22 20:06 | ED General ---
General Chief Complaint: Glucose Problems Stated Complaint: DIABETIC, CONFUSED, INSULIN ISSUES Nursing Triage Note: PT STATES SHE IS CONFUSED AND SEEING THINGS, BLURRED VISION. HAS NOT CHECKED HER BLOOD SUGAR SINCE LAST WEEK, STARTED OZEMPIC SATURDAY SYMPTOMS STARTED SATURDAY, TAKING INSULIN LANTUS 50 UNITS IN THE MORNING, ASPART 100 UNITS WITH MEALS, HAVING HOT FLASHES Source of Information: Patient Exam Limitations: No Limitations History of Present Illness Date Seen by Provider: May 22, 2022 Time Seen by Provider: 18:05 Initial Comments Patient is a 32-year-old female who presents to the emergency department for evaluation of some confusion and "seeing things". Patient has a history of diabetes and was started on Ozempic last week. The symptoms have been present since the day after she started Ozempic. She has not checked her blood sugar recently. Denies any headache, sudden vision loss, focal numbness/weakness. States she has some depression and "I stay in the house a lot". Denies any other symptoms at this time. Allergies and Home Medications Allergies Coded Allergies: No Known Drug Allergies (Unverified , 05/05/19) Patient Home Medication List Home Medication List Reviewed: Yes Atorvastatin Calcium (Atorvastatin Calcium) 20 Mg Tablet, 20 MG PO DAILY, (Reported) Entered as Reported by: JEOVANNY SPENCER on [birth year]/1932 Bupropion HCl (Bupropion Xl) 150 Mg Tab.er.24h, 150 MG PO DAILY, (Reported) Entered as Reported by: JEOVANNY SPENCER on 01/25/1932 D-Methorphan Hb/P-Epd HCl/Bpm (Bromfed Dm Cough Syrup) 118 Ml Syrup, 5 ML PO Q4H PRN for CONGESTION Prescribed by: JACK BECKHAM on 03/30/212205 Lisinopril (Lisinopril) 10 Mg Tablet, 10 MG PO DAILY, (Reported) Entered as Reported by: JEOVANNY SPENCER on 01/25/1932 Metformin HCl (Metformin HCl ER) 500 Mg Tab.er.24h, 500 MG PO DAILY, (Reported) Entered as Reported by: JEOVANNY SPENCER on 01/25/1932 Nitrofurantoin Monohyd/M-Cryst (Macrobid 100 mg Capsule) 100 Mg Capsule, 100 MG PO BID Prescribed by: ALEXA JULIEN on 01/25/19141 Sitagliptin Phosphate (Januvia) 100 Mg Tablet, 100 MG PO DAILY, (Reported) Entered as Reported by: JEOVANNY SPENCER on 01/25/19 0033 Review of Systems Review of Systems Constitutional: no symptoms reported EENTM: see HPI Respiratory: no symptoms reported Cardiovascular: no symptoms reported Gastrointestinal: no symptoms reported Genitourinary: no symptoms reported Musculoskeletal: no symptoms reported Skin: no symptoms reported Psychiatric/Neurological: No Symptoms Reported Hematologic/Lymphatic: No Symptoms Reported Immunological/Allergic: no symptoms reported Past [id number]-[id number] Hx Patient Social History Tobacco Use?: No Substance use?: No Alcohol Use?: No Immunizations Up To Date PED Vaccines UTD: Yes Seasonal Allergies Seasonal Allergies: No Past Medical History Surgery/Hospitalization HX: DIABETIC TYPE I, DEPRESSION, ANXIETY, C SECTION, GALBLADDER ISSUES Surgeries: Yes Section, Tonsillectomy Respiratory: No Cardiac: Yes High Cholesterol, Hypertension Neurological: No Last Menstrual Period: Apr 19, 2022 Reproductive Disorders: No Genitourinary: No Gastrointestinal: No Musculoskeletal: No Endocrine: Yes (MORBID OBESITY HAS NEVER CHECKED HER BLOOD SUGAR) Diabetes, Non-Insulin dep HEENT: No Cancer: No Psychosocial: No Integumentary: No Blood Disorders: No Physical Exam Vital Signs Vital Signs - First Documented 05/22/22 18:02 Temp 35.9 Pulse 122 Resp 20 B/P (MAP) 144/98 (113) Pulse Ox 97 O2 Delivery Room Air Capillary Refill : Less Than 3 Seconds Height, Weight, BMI Height: '" Weight: lbs. oz. kg; 57.00 BMI Method: General Appearance: No Apparent Distress, WD/WN HEENT: PERRL/EOMI, TMs Normal, Normal ENT Inspection, Pharynx Normal Neck: Full Range of Motion, Normal Inspection, Non Tender, Supple Respiratory: Chest Non Tender, Lungs Clear, Normal Breath Sounds Cardiovascular: Regular Rate, Rhythm Gastrointestinal: Non Tender, Soft Neurologic/Psychiatric: Alert, Oriented x3, No Motor/Sensory Deficits, Normal Mood/Affect Skin: Normal Color, Warm/Dry Progress/Results/Core Measures Suspected Sepsis SIRS Temperature: Pulse: 122 Respiratory Rate: 20 Laboratory Tests 05/22/22 18:45: White Blood Count 12.3H Blood Pressure 144 /98 Mean: 113 Laboratory Tests 05/22/22 18:45: Creatinine 0.70, Platelet Count 318, Total Bilirubin 0.4 Results/Orders Lab Results Laboratory Tests Test 05/22/22 18:05 05/22/22 18:33 05/22/22 18:45 05/22/22 19:05 Range/Units Glucometer 273 H 70-110 MG/DL Urine Color YELLOW Urine Clarity SL CLOUDY Urine pH 5.5 5-9 Urine Specific [place] >=1.030 1.016-1.022 Urine Protein NEGATIVE NEGATIVE Urine Glucose (UA) 3+ H NEGATIVE Urine Ketones NEGATIVE NEGATIVE Urine Nitrite NEGATIVE NEGATIVE Urine Bilirubin NEGATIVE NEGATIVE Urine Urobilinogen 0.2 < = 1.0 MG/DL Urine Leukocyte Esterase NEGATIVE NEGATIVE Urine RBC (Auto) NEGATIVE NEGATIVE Urine RBC NONE /HPF Urine WBC NONE /HPF Urine Squamous Epithelial Cells 5-10 /HPF Urine Crystals NONE /LPF Urine Bacteria FEW H /HPF Urine Casts NONE /LPF Urine Mucus SMALL H /LPF Urine Culture Indicated YES Urine Opiates Screen NEGATIVE NEGATIVE Urine Oxycodone Screen NEGATIVE NEGATIVE Urine Methadone Screen NEGATIVE NEGATIVE Urine Propoxyphene Screen NEGATIVE NEGATIVE Urine Barbiturates Screen NEGATIVE NEGATIVE Ur Tricyclic Antidepressants Screen NEGATIVE NEGATIVE Urine Phencyclidine Screen NEGATIVE NEGATIVE Urine Amphetamines Screen NEGATIVE NEGATIVE Urine Methamphetamines Screen NEGATIVE NEGATIVE Urine Benzodiazepines Screen NEGATIVE NEGATIVE Urine Cocaine Screen NEGATIVE NEGATIVE Urine Cannabinoids Screen NEGATIVE NEGATIVE White Blood Count 12.3 H 4.3-11.0 10^3/uL Red Blood Count 6.13 H 3.80-5.11 10^6/uL Hemoglobin 16.6 H 11.5-16.0 g/dL Hematocrit 51 35-52 % Mean Corpuscular Volume 83 80-99 fL Mean Corpuscular Hemoglobin 27 25-34 pg Mean Corpuscular Hemoglobin Concent 33 32-36 g/dL Red Cell Distribution Width 14.2 10.0-14.5 % Platelet Count 318 130-400 10^3/uL Mean Platelet Volume 10.2 9.0-12.2 fL Immature Granulocyte % (Auto) 0 % Neutrophils (%) (Auto) 61 42-75 % Lymphocytes (%) (Auto) 29 12-44 % Monocytes (%) (Auto) 6 0-12 % Eosinophils (%) (Auto) 4 0-10 % Basophils (%) (Auto) 1 0-10 % Neutrophils # (Auto) 7.4 1.8-7.8 10^3/uL Lymphocytes # (Auto) 3.6 1.0-4.0 10^3/uL Monocytes # (Auto) 0.8 0.0-1.0 10^3/uL Eosinophils # (Auto) 0.5 H 0.0-0.3 10^3/uL Basophils # (Auto) 0.1 0.0-0.1 10^3/uL Immature Granulocyte # (Auto) 0.0 0.0-0.1 10^3/uL Sodium Level 135 135-145 MMOL/L Potassium Level 4.2 3.6-5.0 MMOL/L Chloride Level 100 98-107 MMOL/L Carbon Dioxide Level 23 21-32 MMOL/L Anion Gap 12 5-14 MMOL/L Blood Urea Nitrogen 10 7-18 MG/DL Creatinine 0.70 0.60-1.30 MG/DL Estimat Glomerular Filtration Rate 119 BUN/Creatinine Ratio 14 Glucose Level 271 H 70-105 MG/DL Calcium Level 9.5 8.5-10.1 MG/DL Corrected Calcium 9.6 8.5-10.1 MG/DL Total Bilirubin 0.4 0.1-1.0 MG/DL Aspartate Amino Transf (AST/SGOT) 42 H 5-34 U/L Alanine Aminotransferase (ALT/SGPT) 78 H 0-55 U/L Alkaline Phosphatase 98 40-136 U/L Ammonia 22 11-32 UMOL/L Total Protein 7.7 6.4-8.2 GM/DL Albumin 3.9 3.2-4.5 GM/DL Beta-Hydroxybutyrate (Chem panel) 0.05 0.00-0.27 MMOL/L Venous Blood pH 7.40 7.31-7.41 Venous Blood Partial Pressure CO2 43 40-52 MMHG Venous Blood HCO3 27 22-28 MMOL/L Micro Results Microbiology 05/22/22 Urine Culture - Preliminary, Resulted Slight Growth Present My Orders Orders - ELIER REILLY [employer]IST Cbc With Automated Diff (05/22/22 18:24) Comprehensive Metabolic Panel (05/22/22 18:24) Iv/Invasive Line Insertion .IV INSERT (05/22/22 18:24) Drug Screen Stat (Urine) (05/22/22 18:24) Beta Hydroxybutyrate (05/22/22 18:24) Urinalysis (05/22/22 18:24) Urine Bedside (05/22/22 18:24) Ammonia (05/22/22 18:24) Accucheck Stat ONCE (05/22/22 18:24) Venous Blood Gas (05/22/22 18:24) Urine Culture (05/22/22 18:33) Vital Signs/I&O 05/22/22 05/22/22 18:02 20:14 Temp 35.9 35.9 Pulse 122 89 Resp 20 18 B/P (MAP) 144/98 (113) 135/78 Pulse Ox 97 98 O2 Delivery Room Air Room Air Capillary Refill : Less Than 3 Seconds Blood Pressure Mean: 113 Point of Care Testing Finger Stick Blood Glucose: 273 Progress Note : Progress Note Patient is nontoxic and well-hydrated on exam. No focal neurologic deficits appreciated. Vital signs are reassuring. Patient is awake alert and oriented and answers all questions appropriately. Extraocular movements are intact. Orders placed for CBC, CMP, IV insertion, UDS, beta hydroxybutyrate, UA. CBC notable for mild leukocytosis. CMP notable for hyperglycemia. BHB is negative. UA notable for glucosuria but is otherwise unremarkable. UDS negative. Patient remains awake alert and oriented and answers all questions appropriately. Will discharge home with recommendations for supportive care and close follow-up with PCP. Return precautions for urgent symptomology discussed. Patient verbalized understanding. Departure Impression Primary Impression: Blurred vision Additional Impression: Confusion Disposition: 01 HOME, SELF-CARE Condition: Stable Departure-Patient Inst. Decision time for Depature: 20:05 Referrals: REJI RING MD (PCP/Family) Primary Care Physician Patient Instructions: Delirium (Confusion) (DC) ELIER REILLY APRN May 22, 2022 20:06
[2022-05-22 20:14] VITALS: BP 135/78
== END 2022-05-22 20:19 | disposition home or self-care (01) ==
LOC: EDUNIT# 17:53 → ER 17:55
DX: H53.8 Other visual disturbances (principal); R41.0 Disorientation, unspecified; E10.9 Type 1 diabetes mellitus without complications; D72.829 Elevated white blood cell count, unspecified; E66.01 Morbid (severe) obesity due to excess calories; Z68.43 Body mass index [BMI] 50.0-59.9, adult; Z28.310 Unvaccinated for COVID-19
CPT/HCPCS: 36415; 80053; 80306; 81000; 82010; 82140; 82805; 82947; 84703; 85025; 87088